=== PATIENT | male | born 1995 | race Hispanic/Latino ===

== ENCOUNTER 2021-11-27 19:55 | Emergency (ER) | payer OTHER ==
[~2021-11-27] VITALS: Ht 172.7 cm; Wt 81.0 kg
[2021-11-27] VITALS (13 sets, daily range): BP systolic 114–132; BP diastolic 61–89
[2021-11-28 01:44] VITALS: BP 120/73
== END 2021-11-28 01:45 | disposition short-term general hospital (02) | DRG 563 ==
LOC: ED 19:55
DX: S42.452B Displaced fracture of lateral condyle of left humerus, initial encounter for open fracture (principal); V48.0XXA Car driver injured in noncollision transport accident in nontraffic accident, initial encounter; S51.812A Laceration without foreign body of left forearm, initial encounter